=== PATIENT | male | born 1965 | race African-American/Black ===

== ENCOUNTER 2016-07-01 07:07 | Observation (INO) | payer BC ==
--- NOTE | ~2016-07-01 | DS ---
Unit #: [id number] #: [id number] Patient: KHANH ELLIOTT SR [id number] [address] [address] [id number] MR#: [id number] NAME: KHANH ELLIOTT SR ROOM: [facility] Age: 51 Sex: M Admission Date: 07/01/2016 : 1965 Discharge Date: 07/02/2016 Attending Physician: Les Sarkar M.D. Primary Care Physician: Generic Doctor Not In System DISCHARGE SUMMARY DISCHARGE DIAGNOSES 1. Angina pectoris. 2. Status post cardiac catheterization, 07/01/2016, per Dr. Les Sarkar at [facility] that revealed the following results: a. Left main normal. b. Left anterior descending artery with mild ectasia in the proximal third of the left anterior descending. First diagonal branch had 80% to 90% stenosis in the proximal third. Distal vessel normal. Mild plaquing in the mid and distal left anterior descending. c. Circumflex artery large caliber, dominant vessel with [id number]-[id number] ectasia in the proximal portion. First and second marginal branches normal. Third marginal branch with 99% stenosis, 5 millimeters beyond its origin. d. Right coronary artery medium caliber, nondominant vessel showed multiple stents mid segment. In the distal section there is 100% stenosis. e. Ejection fraction of 45% with no mitral regurgitation. There was pcib-[id number]-mxrkyzmu global hypokinesis of the left ventricle. f. Status post percutaneous coronary intervention with drug-eluting stent to the diagonal branch of the left anterior descending with plain old balloon angioplasty to the 100% in-stent stenosis of the right coronary artery and unsuccessful percutaneous coronary intervention to the third obtuse marginal branch of the circumflex. 3. Non-ST elevation myocardial infarction, 02/27/2015, status post balloon angioplasty to the right coronary artery with failed attempt to angioplasty the second marginal branch of the circumflex artery. 4. Percutaneous coronary intervention and stent placement to the right coronary artery, 03/2015. 5. Balloon angioplasty to the right coronary artery, 02/2015. 6. Hypertension. 7. Hyperlipidemia. DISCHARGE MEDICATIONS 1. Lopressor 25 mg b.i.d. 2. Hydrochlorothiazide 25 mg daily. 3. Lipitor 80 mg q.h.s. 4. Aspirin 81 mg daily. 5. Brilinta 90 mg b.i.d. HOSPITAL COURSE This is a 51-year-old male who is known to Dr. Sarakr and presented to the office with the complaint of marked fatigue and weakness. Unit #: [id number] #: [id number] Patient: KHANH ELLIOTT SR He reported nocturnal angina, as well as recurrent episodes of chest pressure and heaviness. He was scheduled for an elective cardiac catheterization to reevaluate his coronary anatomy. Cardiac catheterization found the patient to have a 90% stenosis in the proximal diagonal branch. Circumflex artery third marginal branch had 99% stenosis. Mid right coronary artery had in-stent stenosis of the distal subsegment of 100%. He underwent angioplasty with drug-eluting stent placement to the diagonal branch of the LAD using a 3 x 16 mm Synergy drug-eluting stent. The stent was postdilated up to 16 atmospheres to a diameter of 3.21 mm. There was no residual. There was PCI to the in-stent occlusion to the right coronary artery that reduced the stenosis from 100% to no residual. There was unsuccessful attempt to PCI the third marginal branch of the circumflex artery. The wire tip could not cross the occlusion. The patient was administered aspirin prior to the procedure and was started on Brilinta. He did well in the post angioplasty recovery period. He had no arrhythmias. His heart rate and blood pressure remained stable. His right groin healed well. MB index 2.5. Cholesterol levels were obtained, which found the patient to have an LDL level of 143. He was placed on high-intensity statin with Lipitor 80 mg q.h.s. He is stable for discharge today. ASSESSMENT VITAL SIGNS: Blood pressure 111/72, heart rate 60, temperature 97.4. CHEST: Clear to auscultation. HEART: S1, S2 with heart sounds normal. No murmurs. No rubs. No clicks. Regular rate and rhythm. ABDOMEN: Soft, nontender. Bowel sounds are present. EXTREMITIES: Without leg edema. Palpable pedal pulses. Right groin site without hematoma or bruising. DIAGNOSTIC STUDIES LABORATORY STUDIES: Glucose 101, BUN 17, creatinine 1.1, sodium 134, potassium 3.9. CK total 100, MB 2.5, MB index 2.5. Cholesterol 197, triglycerides 79, LDL 143, HDL 38. White count 11.5, hemoglobin 13, hematocrit 39.6, platelet count 224. CARDIOVASCULAR: Electrocardiogram shows normal sinus rhythm with a rate of 74 beats per minute. There was left anterior fascicular block and poor R wave progression. DISCHARGE INSTRUCTIONS 1. The patient will be discharged home today. 2. Follow up with Dr. Sarkar on August 24 at 1:30 p.m. 3. The patient is scheduled for cardiac rehab on 07/08/2016. 4. The patient may return to work [employer] on 07/07/2016 without restrictions. 5. Beta-sixto and statin are new, and prescriptions have been provided. 6. The patient has been discharged home on Brilinta. The cost of Brilinta is currently being obtained. He has been provided a 30-day free drug card, as well as samples from our office. We will call him upon decision from insurance company on the cost. The patient states he has no prescription coverage with his insurance. Will need followup in the office. He has been instructed not to discontinue Brilinta to prevent stroke, CVA, myocardial infarction and . He Unit #: [id number] #: [id number] Patient: LEXI KHANH MUÑOZ verbalized understanding. Dictated by... Elizabeth JasonPAlbertRTyrese for Anand Pryor/marisol TD: 07/03/2016 10:23 JOB #: [id number] DISCHARGE SUMMARY X Feliciano Borja APRN X DISCHARGE SUMMARY
--- NOTE | ~2016-07-01 | EKG ---
PATIENT: KHANH ELLIOTT UNIT #: [id number] Ventricular Rate: 74 BPM Atrial Rate: 74 BPM P-R Interval: 178 ms QRS Duration: 108 ms Q-T Interval: 398 ms QTC Calculation(Bezet): 441 ms P [place]: 39 degrees Calculated R [place]: -40 degrees Calculated T [place]: 24 degrees Diagnosis Line: Normal sinus rhythm Diagnosis Line: Left axis deviation Diagnosis Line: Moderate voltage criteria for LVH, may be normal Diagnosis Line: variant Diagnosis Line: Cannot rule out Septal infarct , age undetermined Diagnosis Line: Abnormal ECG Diagnosis Line: No previous ECGs available Diagnosis Line: Confirmed by MIGUELANGEL RUBIO MD ([id number]) on 07/01/2016 Diagnosis Line: 6:18:52 PM INTERPRETING MD: RAMIRO KAISER
--- NOTE | ~2016-07-01 | EKG ---
PATIENT: KHANH ELLIOTT UNIT #: [id number] Ventricular Rate: 67 BPM Atrial Rate: 67 BPM P-R Interval: 190 ms QRS Duration: 96 ms Q-T Interval: 400 ms QTC Calculation(Bezet): 422 ms P [place]: 60 degrees Calculated R [place]: -36 degrees Calculated T [place]: 25 degrees Diagnosis Line: Normal sinus rhythm Diagnosis Line: Left axis deviation Diagnosis Line: Abnormal ECG Diagnosis Line: When compared with ECG of 01-JUL-2016 08:10, Diagnosis Line: (unconfirmed) Diagnosis Line: Minimal criteria for Septal infarct are no longer Diagnosis Line: Present Diagnosis Line: Confirmed by MIGUELANGEL RUBIO MD ([id number]) on 07/01/2016 Diagnosis Line: 6:21:43 PM INTERPRETING MD: RAMIRO KAISER
--- NOTE | ~2016-07-01 | EKG ---
PATIENT: KHANH ELLIOTT UNIT #: [id number] Ventricular Rate: 56 BPM Atrial Rate: 56 BPM P-R Interval: 182 ms QRS Duration: 92 ms Q-T Interval: 436 ms QTC Calculation(Bezet): 420 ms P [place]: 35 degrees Calculated R [place]: -29 degrees Calculated T [place]: 11 degrees Diagnosis Line: Sinus bradycardia with sinus arrhythmia Diagnosis Line: Minimal voltage criteria for LVH, may be normal Diagnosis Line: variant Diagnosis Line: Borderline ECG Diagnosis Line: When compared with ECG of 01-JUL-2016 11:56, Diagnosis Line: No significant change was found Diagnosis Line: Confirmed by EMILY TAYLOR MD ([id number]) on Diagnosis Line: 07/02/2016 8:09:32 AM INTERPRETING MD: OLIVIA
[~2016-07-01 07:07] MED LIST: ACETAMINOPHEN PO; AMLODIPINE BESYL5 MG PO; ASPIRIN81 MG PO; ATORVASTATIN CA80 MG PO; BACTRIM DS TABL1 TAB PO; BENADRYL PO; CALADRYL LOTIO180 ML; CHOLESTEROL MED; CLOPIDOGREL75 MG PO; DICLOFENAC PO; DOXAZOSIN MESYLA2 MG PO; HYDRALAZINE HCL25 MG PO; HYDROCHLOROTHIA25 MG PO; IMDUR-ER60 M3 PO; KEFLEX PO; LISINOPRIL1 GM PO; MEDROL PO; METOPROLOL SUCC25 MG PO; NITROSTAT0.4 MG SL; PERCOCET5/325 PO; PREDNISONE PO; SIMVASTATIN40 MG PO; TRIAMTERENE/HCT1 TA3 PO; VERAPAMIL ER240 MG PO; VICODIN 5/500 T1 TAB PO; WALGREENS PHARMACY; [UNRECOGNIZED DRUG - OTHER]
[2016-07-01 07:50] LABS: HEMATOCRIT 43.7 % (38.0-50.0); HEMOGLOBIN 14.4 gm/dL (13.0-16.0); MEAN CELL VOLUME 87.5 FL (83-96); MEAN CORPUSCULAR HEMOGLOBIN 28.8 PG (28-34); MEAN CORPUSCULAR HGB CONC 32.9 g/dL (30-36); MEAN PLATELET VOLUME 8.1 FL (6.5-11.5); RED CELL DISTRIBUTION WIDTH 13.3 % (11.0-15.5); WHITE BLOOD COUNT 9.2 X10e3 (4.0-10.5)
[2016-07-01 08:11] LABS: PARTIAL THROMBOPLASTIN TIME 26.5 SECONDS (23.5-31.3); PROTHROMBIN TIME (PATIENT) 10.8 SECONDS (9.6-11.5)
[2016-07-01 08:22] LABS: BLOOD UREA NITROGEN 15 mg/dL (9-23); CARBON DIOXIDE 26 mmol/L (22-31); CHLORIDE 102 mmol/L (100-111); GLOM FILT RATE Estimated ABOVE60 mL/min (>60); GLUCOSE FASTING 108 mg/dL (70-110); POTASSIUM 4.1 mmol/L (3.5-5.1); SODIUM 137 mmol/L (135-145)
[2016-07-01 20:34] LABS: ANGIO %MB 1.5 % (0.0-4.0); ANGIO MB 1.7 ng/ml
[2016-07-02 03:29] LABS: BASOPHIL# 0.1 X10e3 (0-0.3); BASOPHIL% 0.8 % (0-2.5); EOSINOPHIL# 0.2 X10e3 (0-0.7); EOSINOPHIL% 2.1 % (0.0-7.0); HEMATOCRIT 39.6 % (38.0-50.0); LYMPHOCYTE# 2.9 X10e3 (1.0-3.5); MEAN CELL VOLUME 87.7 FL (83-96); MEAN CORPUSCULAR HEMOGLOBIN 28.7 PG (28-34); MEAN CORPUSCULAR HGB CONC 32.7 g/dL (30-36); MEAN PLATELET VOLUME 8.3 FL (6.5-11.5); MONOCYTE# 0.9 X10e3 (0-1.0); MONOCYTE% 7.7 % (3.0-12.0); NEUTROPHIL# 7.4 X10e3 (1.5-7.1); NEUTROPHIL% 64.4 % (40-75); PLATELET COUNT 224 X10e3 (140-420); RED BLOOD COUNT 4.52 X10e (3.90-5.60); RED CELL DISTRIBUTION WIDTH 13.5 % (11.0-15.5); WHITE BLOOD COUNT 11.5 X10e3 (4.0-10.5)
[2016-07-02 03:32] LABS: DIFF IND NO
[2016-07-02 03:50] LABS: BLOOD UREA NITROGEN 17 mg/dL (9-23); BUN/CREATININE RATIO 15.45; CALCIUM SERUM 8.3 mg/dL (8.4-10.2); CARBON DIOXIDE 27 mmol/L (22-31); CHLORIDE 104 mmol/L (100-111); CHOLESTEROL 197 mg/dL (0-200); CREATININE SERUM 1.1 mg/dL (0.6-1.4); GLOM FILT RATE Estimated ABOVE60 mL/min (>60); GLUCOSE FASTING 101 mg/dL (70-110); HDL CHOLESTEROL 38 mg/dL (29-75); LDL/HDL RATIO 4 RATIO (0-4); POTASSIUM 3.9 mmol/L (3.5-5.1); SODIUM 134 mmol/L (135-145); TRIGLYCERIDES 79 mg/dL (10-160)
[2016-07-02 03:52] LABS: LDL CHOLESTEROL 143 mg/dL (-130)
[2016-07-02 04:16] LABS: ANGIO %MB 2.5 % (0.0-4.0); ANGIO MB 2.5 ng/ml
[2016-07-02] MEDS ORDERED: METOPROLOL TAR25 MG PO (10:50)
[2016-07-02] MEDS ORDERED: LIPITOR PO (10:51)
[2016-07-02] MEDS ORDERED: LISINOPRIL20 MG PO (10:51)
[2016-07-15] MEDS ORDERED: BRILINTA90 MG PO (00:10)
[2016-07-15] MEDS ORDERED: SIMVASTATIN40 MG PO (00:10)
[2016-07-15] MEDS ORDERED: NORVASC PO (00:11)
== END 2016-07-02 13:20 | disposition home or self-care (01) | DRG 303 ==
LOC: CCVL 07:07 → CEDOF 10:03 → C5C 16:01
PROVIDERS: Internal Medicine Cardiovascular Disease
DX: I25.110 Atherosclerotic heart disease of native coronary artery with unstable angina pectoris (principal); T82.855A Stenosis of coronary artery stent, initial encounter; I11.9 Hypertensive heart disease without heart failure; E78.5 Hyperlipidemia, unspecified; I25.2 Old myocardial infarction; Z95.5 Presence of coronary angioplasty implant and graft
CPT/HCPCS: 92920; 93458; C9600; 36415; 80048; 80061; 82550; 82553; 85025; 85027; 85347; 85610; 85730; 93005; C1725; C1769; C1874; C1887; G0378; J0461; J1644; J2250; J2270; J2405; J3010

== ENCOUNTER 2016-07-15 00:38 | Emergency (ER) | payer BC ==
--- NOTE | ~2016-07-15 | CR72 ---
[facility] A Service of [facility] RADIOLOGY TEXT RESULTS PATIENT: KHANH ELLIOTT SR LOCATION: [facility] : [birth year] UNIT #: [id number] AGE: [address]: BEBETO BARRON APRN SEX: M ORDER DR: [id number] [facility] [address] [place], [place] [address] [id number] MR#: [id number] Acc #: [id number] NAME: KHANH ELLIOTT SR : 1965 SEX: M STUDY DATE/TIME: 07/15/2016 00:59 UNIT: [facility] ROOM: STUDY DESCRIPTION: CR Chest Single View Portable Attending Physician: Bebeto Barron Aprn Ordering Physician: Bebeto Barron Aprn Primary Care Physician: Primary Care Physician No MEDICAL IMAGING REPORT This report is preliminary unless electronic signature is present EXAM Portable chest, 07/15 at 00:59 hours INDICATION Shortness of air and chest pain for 2 weeks after heart catheterization. History of hypertension and coronary artery disease. COMPARISON 05/21/2016 FINDINGS A single AP portable view of the chest shows both lungs to be clear. The heart is normal in size. The mediastinal contour is normal. No significant bone abnormalities are seen. IMPRESSION Normal portable chest. Dictated by... Tr Ernst Jr., M.D. THIS IS AN ELECTRONICALLY VERIFIED REPORT Tr Ernst Jr., M.D. at 07/15/2016 9:16 PM OFELIA/karlos TD: 07/15/2016 10:06 JOB #: [id number] MEDICAL IMAGING REPORT COPY
--- NOTE | ~2016-07-15 | EKG ---
PATIENT: KHANH ELLIOTT UNIT #: [id number] Ventricular Rate: 67 BPM Atrial Rate: 67 BPM P-R Interval: 192 ms QRS Duration: 98 ms Q-T Interval: 394 ms QTC Calculation(Bezet): 416 ms P [place]: 55 degrees Calculated R [place]: -36 degrees Calculated T [place]: 25 degrees Diagnosis Line: Normal sinus rhythm Diagnosis Line: Left axis deviation Diagnosis Line: Incomplete right bundle branch block Diagnosis Line: Minimal voltage criteria for LVH, may be normal Diagnosis Line: variant Diagnosis Line: Abnormal ECG Diagnosis Line: When compared with ECG of 02-JUL-2016 06:38, Diagnosis Line: Incomplete right bundle branch block is now Diagnosis Line: Present Diagnosis Line: Confirmed by JONATHAN COKER MD ([id number]) on 07/16/2016 Diagnosis Line: 5:38:26 PM INTERPRETING MD: SHEELA KAISER
[~2016-07-15 00:38] MED LIST changes: +BRILINTA90 MG PO; +LIPITOR PO; +LISINOPRIL20 MG PO; +METOPROLOL TAR25 MG PO; +NORVASC PO
[2016-07-15 01:05] LABS: POC - CKMB 1.2 ng/mL (0.0-7.9); POC - TROPONIN <0.05 ng/mL (<=0.05)
[2016-07-15 01:12] LABS: BASOPHIL# 0.1 X10e3 (0-0.3); BASOPHIL% 0.7 % (0-2.5); DIFF IND NO; EOSINOPHIL# 0.3 X10e3 (0-0.7); EOSINOPHIL% 3.6 % (0.0-7.0); HEMOGLOBIN 12.8 gm/dL (13.0-16.0); LYMPHOCYTE# 2.4 X10e3 (1.0-3.5); LYMPHOCYTE% 25.6 % (17.0-45.0); MEAN CELL VOLUME 86.5 FL (83-96); MEAN CORPUSCULAR HEMOGLOBIN 28.4 PG (28-34); MEAN CORPUSCULAR HGB CONC 32.9 g/dL (30-36); MEAN PLATELET VOLUME 8.2 FL (6.5-11.5); MONOCYTE# 0.7 X10e3 (0-1.0); MONOCYTE% 7.6 % (3.0-12.0); NEUTROPHIL# 5.8 X10e3 (1.5-7.1); NEUTROPHIL% 62.5 % (40-75); PLATELET COUNT 256 X10e3 (140-420); RED CELL DISTRIBUTION WIDTH 13.3 % (11.0-15.5); WHITE BLOOD COUNT 9.2 X10e3 (4.0-10.5)
[2016-07-15 01:26] LABS: PARTIAL THROMBOPLASTIN TIME 27.6 SECONDS (23.5-31.3); PROTHROMBIN TIME (PATIENT) 10.9 SECONDS (9.6-11.5)
[2016-07-15 01:40] LABS: ALBUMIN SERUM 3.6 g/dL (3.5-5.0); ALKALINE PHOSPHATASE 62 U/L (32-92); ALT (SGPT) 21 U/L (10-40); AST (SGOT) 18 U/L (10-42); BILIRUBIN, DIRECT 0.1 mg/dL (0.0-0.2); BILIRUBIN,INDIRECT 0.3 mg/dL (0.0-0.9); BILIRUBIN,TOTAL 0.4 mg/dL (0.2-2.0); BLOOD UREA NITROGEN 16 mg/dL (9-23); CALCIUM SERUM 8.5 mg/dL (8.4-10.2); CARBON DIOXIDE 26 mmol/L (22-31); CHLORIDE 96 mmol/L (100-111); CREATININE SERUM 0.8 mg/dL (0.6-1.4); GLOM FILT RATE Estimated ABOVE60 mL/min (>60); GLUCOSE FASTING 90 mg/dL (70-110); POTASSIUM 3.2 mmol/L (3.5-5.1); PROTEIN TOTAL SERUM 7.1 g/dL (6.0-8.3); SODIUM 131 mmol/L (135-145)
[2016-07-15 04:22] LABS: POC - CKMB <1.0 ng/mL (0.0-7.9); POC - TROPONIN <0.05 ng/mL (<=0.05)
== END 2016-07-15 04:50 | disposition home or self-care (01) ==
LOC: CED 00:38
PROVIDERS: Nurse Practitioner Family
DX: R07.89 Other chest pain (principal); R11.0 Nausea; I25.2 Old myocardial infarction; J45.909 Unspecified asthma, uncomplicated; E78.5 Hyperlipidemia, unspecified; Z95.5 Presence of coronary angioplasty implant and graft; Z91.013 Allergy to seafood; Z79.82 Long term (current) use of aspirin; Z79.899 Other long term (current) drug therapy
CPT/HCPCS: 36415; 71010; 80048; 80076; 82553; 84484; 85025; 85610; 85730; 93005; 99284